=== PATIENT | male | born 1970 ===

== ENCOUNTER 2017-04-04 08:28 | Observation (INO) | payer OTHER ==
[2017-04-04 08:33] VITALS: BMI 30.6
[2017-04-04 08:34] VITALS: TEMP 97.9
--- NOTE | 2017-04-04 08:47 | C.PDOC ---
History Of Present Illness 46 y/o male, with no significant PMHx, presents to the ED for evaluation of intermittent left sided chest pain for the last 2 days. States that his pain radiates to upper back occasionally. Otherwise, denies any associated shortness of breath, cough, palpitations, lightheadedness, dizziness, headache, nausea, vomiting, or fever. Patient denies any PMHx or FHx of cardiac disease, or blood clots. Time Seen by Provider: 04/04/17 08:29 Chief Complaint (Nursing): Chest Pain History Per: Patient History/Exam Limitations: no limitations Onset/Duration Of Symptoms: Days (2), Intermittent Episodes Current Symptoms Are (Timing): Still Present Associated Symptoms: denies: Nausea, Dyspnea, Diaphoresis, Syncope Modifying Factors: None Exacerbating Factors: None Alleviating Factors: None Recent travel outside of the [place]: No Additional History Per: Patient Past Medical History Reviewed: Historical Data, Nursing Documentation, Vital Signs Vital Signs: Last Vital Signs Temp 97.9 F 04/04/17 08:33 Pulse 55 L 04/04/17 09:51 Resp 18 04/04/17 09:51 BP 128/87 04/04/17 09:51 Pulse Ox 96 04/04/17 10:25 - Medical History PMH: No Chronic Diseases Family History: States: No Known Family Hx Review Of Systems Except As Marked, All Systems Reviewed And Found Negative. Constitutional: Negative for: Fever, Chills, Sweats Cardiovascular: Positive for: Chest Pain. Negative for: Palpitations, Edema, Light Headedness Respiratory: Negative for: Cough, Shortness of Breath, SOB with Excertion, Sputum, Wheezing Gastrointestinal: Negative for: Nausea, Vomiting Skin: Negative for: Rash Neurological: Negative for: Weakness, Numbness, Headache, Dizziness Physical Exam - Physical Exam Appears: Non-toxic, No Acute Distress (comfortable) Skin: Normal Color, Warm, Dry Head: Atraumatic, Normacephalic Eye(s): bilateral: Normal Inspection Oral Mucosa: Moist Neck: Normal ROM, Supple Chest: Symmetrical, No Tenderness Cardiovascular: Rhythm Regular, No Murmur Respiratory: Normal Breath Sounds, No Accessory Muscle Use, No Rales, No Rhonchi , No Wheezing Gastrointestinal/Abdominal: Soft, No Tenderness Extremity: Normal ROM, No Pedal Edema, No Swelling Extremity: Bilateral: Atraumatic, Normal Color And Temperature Neurological/Psych: Oriented x3, Normal Speech, Other (anxious) ED Course And Treatment - Laboratory Results Result Diagrams: 04/04/17 09:08 04/04/17 09:08 ECG: Interpreted By Me, Viewed By Me ECG Rhythm: Sinus Rhythm ECG Interpretation: No Acute Changes Interpretation Of ECG: Normal axis. No acute ST wave changes. Rate From EC (bpm) O2 Sat by Pulse Oximetry: 96 (RA) Pulse Ox Interpretation: Normal Progress Note: Blood work, EKG, CXR ordered and reviewed. On reassessment, patient is resting comfortably, reports improvement of chest pain. Disposition Counseled Patient/Family Regarding: Studies Performed, Diagnosis, Need For Followup, Rx Given - Disposition Disposition: HOME/ ROUTINE Disposition Time: 11:10 Condition: STABLE - Clinical Impression Clinical Impression: Non-cardiac chest pain - Scribe Statement The provider has reviewed the documentation as recorded by the Scribe Timi Villalobos All medical record entries made by the Scribe were at my direction and personally dictated by me. I have reviewed the chart and agree that the record accurately reflects my personal performance of the history, physical exam, medical decision making, and the department course for this patient. I have also personally directed, reviewed, and agree with the discharge instructions and disposition.
[2017-04-04 09:13] LABS: BASO % 0.4 % (0.0-2.0); EOS # 0.1 K/uL (0.0-0.7); EOS % 1.1 % (0.0-4.0); HEMOGLOBIN 15.7 g/dL (12.0-18.0); LYMPH # 2.6 K/uL (1.0-4.3); LYMPH % 35.6 % (20.0-40.0); MEAN CELL VOLUME 87.9 fL (80.0-94.0); MEAN CORPUSCULAR HEMOGLOBIN 29.9 pg (27.0-31.0); MEAN PLATELET VOLUME 8.2 fL (7.2-11.7); MONO # 0.8 K/uL (0.0-0.8); NEUT # 3.7 K/uL (1.8-7.0); NEUT % 51.9 % (50.0-75.0); RBC 5.25 Mil/uL (4.40-5.90); RED CELL DISTRIBUTION WIDTH 12.7 % (11.5-14.5); WHITE BLOOD COUNT 7.2 K/uL (4.8-10.8)
[2017-04-04 09:25] LABS: GFR AFRICAN-AMERICAN > 60; GFR NON-AFRICAN AMERICAN > 60
[2017-04-04 09:26] LABS: ALB/GLOB RATIO 1.1 (1.0-2.1); ALT/SGPT 54 U/L (21-72); AST/SGOT 36 U/L (17-59); BLOOD UREA NITROGEN 10 mg/dL (9-20); LIPASE 36 U/L (23-300)
[2017-04-04 09:27] LABS: PARTIAL THROMBOPLASTIN TIME 27 SECONDS (21-34)
[2017-04-04 09:34] LABS: D DIMER < 200 ng/mlDDU (0-243)
[2017-04-04 09:35] LABS: CK-MB 1.13 ng/mL (0.0-3.38)
[2017-04-04 09:53] VITALS: RESP 18
--- NOTE | 2017-04-04 10:13 | RAD ---
HISTORY: COMPARISON: No prior. TECHNIQUE: Chest PA and lateral FINDINGS: LINES AND TUBES: None. LUNG AND PLEURA: Lungs are well inflated and clear. There are no pleural effusions or pneumothorax. HEART AND MEDIASTINUM: The heart is not enlarged. The hilar and mediastinal contours are within normal limits. SKELETAL STRUCTURES: The bony structures are within normal limits for the patient's age. VISUALIZED UPPER ABDOMEN: Normal. OTHER FINDINGS: None. IMPRESSION: No active pulmonary disease.
[2017-04-04 10:58] LABS: CK-MB 0.98 ng/mL (0.0-3.38)
[2017-04-04 11:26] VITALS: BP 141/91; PULSE 63; O2SAT 95
--- NOTE | 2017-04-05 11:12 | CARD ---
APPROVED REPORT EKG Measurement Heart [id number] <Conclusion> Normal sinus rhythm with sinus arrhythmia Normal ECG
== END 2017-04-04 11:15 | disposition home or self-care (01) ==
LOC: C.ER 08:28 → C.9OBSV 09:56
PROVIDERS: ADMIT Emergency Medicine; ATTEND Emergency Medicine
DX: R07.89 Other chest pain (principal)
CPT/HCPCS: 71020; 80053; 82550; 82553; 83690; 84484; 85025; 85378; 85610; 85730; G0378

== ENCOUNTER 2017-05-19 23:16 | Emergency (ER) | payer SELFPAY ==
[2017-05-19 23:16] VITALS: BMI 30.6
--- NOTE | 2017-05-20 01:26 | CP.PCM.CON ---
History of Present Illness - History of Present Illness History of Present Illness: Podiatry Consult Note - Dr. Brand 46 year old male patient with unremarkable PMHx seen in ED for painful right heel. Patient is accompanied by his and son at bedside. Patient seen resting comfortably, AAOx3 and NAD. Patient states at approximately 22:00 while at home he fell down 6 steps and landed on his right heel. Patient admits he drank 3 beers prior to the fall; denies loss of consciousness prior to the injury. Patient reports 10/10 pain to his right heel, and is unable to ambulate on his right foot. Patient states he initially went to [facility] but states he was not treated so his brought him to [facility]. Patient denies numbness, burning, or tingling to his RLE. Patient denies N/V/F/D/C/SOB/calf pain. No other pedal complaints at this time. PMH: unremarkable PSH: none FH: non-contributory SH: occasional ETOH, denies tobacco or illicit drug use Meds: none All: NKDA Review of Systems - Review of Systems All systems: reviewed and no additional remarkable complaints except (as per HPI ) Past Patient History - Past Social History Smoking Status: Never Smoked - PSYCHIATRIC Hx Substance Use: No - SURGICAL HISTORY Hx Surgeries: No - ANESTHESIA Hx Anesthesia: No Meds Home Medications: Home Medication List Medication Instructions Recorded Confirmed Type Ibuprofen [Motrin] 600 mg PO Q6H #30 tab 05/20/17 Rx Allergies/Adverse Reactions: Allergies Allergy/AdvReac Type Severity Reaction Status Date / Time No Known Allergies Allergy Verified 04/04/17 08:32 Physical Exam - Constitutional Appears: Well, Non-toxic, No Acute Distress - Extremities Exam Additional comments: VASC: DP and PT pulses palpable 2/4 b/l. CFT <3 seconds to digits x10. TG warm to warm. Non-pitting edema noted to medial and lateral R calcaneus. No increase in warmth noted to R foot. NEURO: Gross sensation intact bilaterally. DERM: Ecchymosis noted to lateral aspect of R calcaneus. No open lesions noted. No skin tenting noted to R calcaneus. ORTHO: +POP to medial, lateral, and plantar R calcaneus. Pain on calcaneal squeeze. Right foot muscle strength deferred secondary to guarding. Muscle strength 5/5 for all muscle groups L foot. - Neurological Exam Neurological exam: Alert, Oriented x3 - Psychiatric Exam Psychiatric exam: Normal Affect, Normal Mood Results - Vital Signs Recent Vital Signs: Last Vital Signs Temp 98.3 F 05/19/17 23:24 Pulse 114 H 05/19/17 23:24 Resp 20 05/19/17 23:24 BP 161/105 H 05/19/17 23:24 Pulse Ox 97 05/19/17 23:24 Assessment & Plan - Assessment and Plan (Free Text) Assessment: 46 year old male unremarkable PMH with right foot displaced calcaneal fracture Plan: Patient seen and evaluated Discussed with attending, Dr. Brand Right foot and calc axial XR reviewed Explained to patient morbidity associated with injury;advised patient that surgical intervention is the best option at this time Posterior splint applied to RLE Patient and family aware that patient is to be strict NWB to RLE with the assistance of crutches Ice behind knee 10 mins on/off Rest and elevate RLE above the heart Patient is to follow up with Dr. Brand in the podiatry clinic on Sunday, , for pre-operative evaluation Patient to get RLE CT prior to clinic appointment Stable from podiatry standpoint Thank you for this consult, please reconsult podiatry again as needed
[2017-05-20 01:42] VITALS: BP 134/86; PULSE 87; RESP 16; TEMP 98.2; O2SAT 94
--- NOTE | 2017-05-20 02:01 | C.PDOC ---
History Of Present Illness 46 year old male who presents to the ER with a complaint of right ankle pain after tripping down some stairs missing 6 steps and landing his right heel. Denies weakness or numbness. Time Seen by Provider: 05/19/17 23:42 Chief Complaint (Nursing): Lower Extremity Problem/Injury History Per: Patient History/Exam Limitations: no limitations Onset/Duration Of Symptoms: Hrs Current Symptoms Are (Timing): Still Present Recent travel outside of the [place]: No - Ankle/Foot Description Of Injury: Other (Slipped down stairs) Past Medical History Reviewed: Historical Data, Nursing Documentation, Vital Signs Vital Signs: Last Vital Signs Temp 98.2 F 05/20/17 01:41 Pulse 87 05/20/17 01:41 Resp 16 05/20/17 01:41 BP 134/86 05/20/17 01:41 Pulse Ox 94 L 05/20/17 02:18 - Medical History PMH: No Chronic Diseases Surgical History: No Surg Hx Family History: States: Unknown Family Hx - Social History Hx Alcohol Use: Yes Hx Substance Use: No - Immunization History Hx Tetanus Toxoid Vaccination: No Hx Influenza Vaccination: No Hx Pneumococcal Vaccination: No Review Of Systems Musculoskeletal: Positive for: Foot Pain Neurological: Negative for: Weakness, Numbness Physical Exam - Physical Exam Appears: Non-toxic Skin: Normal Color, Warm, Dry Head: Atraumatic, Normacephalic Extremity: Tenderness (right calcaneus), Capillary Refill (Good), Other (No gross swelling or deformity. Remainder of the right lower extremity is normal.) Pulses: Left Dorsalis Pedis: Normal, Right Dorsalis Pedis: Normal Neurological/Psych: Oriented x3, Normal Speech, Normal Cognition ED Course And Treatment O2 Sat by Pulse Oximetry: 94 (Room air) Pulse Ox Interpretation: Normal - Other Rad Right heel x-ray X-Ray: Interpreted by Me, Viewed By Me Interpretation: Slightly displaced fracture of the right calcaneus. Progress Note: Right heel x-ray ordered. Motrin administered. Podiatry resident evaluated patient at bedside, placed him in a splint, and advised to have him follow up at the podiatry clinic on Sunday. Pt instructed in crutch walking. Pt d/c home accompanied by his and son. Understands follow up and return instructions Disposition Counseled Patient/Family Regarding: Diagnosis, Need For Followup, Rx Given - Disposition Referrals: Podiatry Clinic [Outside] [facility] [Outside] Disposition: HOME/ ROUTINE Disposition Time: 02:16 Condition: STABLE Additional Instructions: Please follow up with Podiatry clinic on sunday morning Take motrin for pain Keep leg elevated Return to ER if worse Prescriptions: Ibuprofen [Motrin] 600 mg PO Q6H #30 tab Instructions: Calcaneal Fracture (ED) Forms: [facility]ando Murphy (Yakut) - Clinical Impression Clinical Impression: Right calcaneal fracture - Scribe Statement The provider has reviewed the documentation as recorded by the Scribe Shelton Hernandes All medical record entries made by the Scribe were at my direction and personally dictated by me. I have reviewed the chart and agree that the record accurately reflects my personal performance of the history, physical exam, medical decision making, and the department course for this patient. I have also personally directed, reviewed, and agree with the discharge instructions and disposition.
--- NOTE | 2017-05-20 09:00 | RAD ---
PROCEDURE: Radiographs of the right calcaneus/hindfoot. HISTORY: pain, fall COMPARISON: None available. TECHNIQUE: Frontal and lateral radiographs of the calcaneus. FINDINGS: There is mildly displaced comminuted calcaneal fracture. There is displaced bony fragment measures approximately 15 x 7 millimeter to the dorsal aspect of the mid calcaneus. IMPRESSION: Large comminuted and displaced fracture through the calcaneus associated with displaced bony fragment.
== END 2017-05-20 02:26 | disposition home or self-care (01) ==
LOC: C.ER 23:16
DX: S92.001A Unspecified fracture of right calcaneus, initial encounter for closed fracture (principal); W10.8XXA Fall (on) (from) other stairs and steps, initial encounter; Y93.89 Activity, other specified; Y92.008 Other place in unspecified non-institutional (private) residence as the place of occurrence of the external cause

== ENCOUNTER 2017-05-24 09:34 | Day surgery (SDC) | payer SELFPAY ==
[2017-05-21 10:19] VITALS: BMI 33.2
[~2017-05-24 09:34] MED LIST: Bupivacaine HCl 0.5% PF (10 ml) Inj ONE; Lidocaine 2% Inj (20ml) ONE; Lidocaine Hydrochloride 5 ML INJ ONE; Midazolam 2 MG/2 ML VIAL ONE; Propofol 10 mg/ml Inj (20 ML) ONE; Succinylcholine Chloride 20 mg/ml Syr (5 ml) IV ONE
[2017-05-24] MEDS ORDERED: ceFAZolin IV 2 gm in Dextrose 1 GM/50 ML BAG IVPB SCH (10:00)
[2017-05-24] MEDS ORDERED: ceFAZolin IV 2 gm in Dextrose 1 GM/50 ML BAG IVPB ONE (10:14)
[2017-05-24] MEDS ORDERED: Bupivacaine HCl 0.5% PF (10 ml) Inj ONE ×3 (10:21→13:31)
[2017-05-24] MEDS ORDERED: Lactated Ringer's 1,000 ML IV ONE ×2 (10:30→12:30)
[2017-05-24] MEDS ORDERED: Midazolam 2 MG/2 ML VIAL ONE (10:31)
[2017-05-24] MEDS ORDERED: Neostigmine Methylsulfate 3mg/3ml Syringe IV ONE (12:27)
[2017-05-24] MEDS ORDERED: Morphine 4 MG/ML VIAL ONE (12:31)
--- NOTE | 2017-05-24 12:53 | PCM.SURG1 ---
Surgeon's Initial Post Op Note - Surgeon's Notes Surgeon: Dr. Brand Grease Maker Head: Thomas Vuong PGY-3, Naheed Beltrán PGY-3 Type of Anesthesia: General Endo Anesthesia Administered By: Dr. Manrique Pre-Operative Diagnosis: Right calcaneal fracture Operative Findings: see dictation. M: 6.5 partially threaded long thread 65 mm cannulated screw, 6.5 partially threaded short thread 55 mm cannulated screw Post-Operative Diagnosis: same Operation Performed: Right calcaneus open reduction internal fixation Specimen/Specimens Removed: none Estimated Blood Loss: EBL {In ML}: 3 Blood Products Given: N/A Drains Used: No Drains Post-Op Condition: Good Date of Surgery/Procedure: 05/24/17 Time of Surgery/Procedure: 10:30
[2017-05-24] MEDS ORDERED: Oxycodone/Acetaminophen 5/325 mg Tab PO PRN ×2 (12:56)
[2017-05-24] MEDS ORDERED: Lactated Ringer's 1,000 ML IV SCH (13:15)
[2017-05-24] MEDS ORDERED: HYDROmorphone 0.5 mg/0.5 ml ISec IVP PRN (13:23)
--- NOTE | 2017-05-24 13:52 | PCM.ANESB2 ---
Popliteal Nerve Block - Popliteal Nerve Block Date of Procedure: 05/24/17 Anesthesiologist: Rafa Pre-Procedure Diagnosis: Right calcaneal fracture Post-Procedure Diagnosis: ORIF right calcaneal Procedure Performed: Popliteal Nerve Block Right - Procedure Popliteal Nerve Block: This procedure was explained to the patient that it is for post-operative pain management. Consent was obtained after a thorough discussion with the patient regarding the benefits and possible complications of local anesthetic block of the sciatic nerve at the popliteal level. The patient was brought to the recoveryroom and standard monitors are applied. Time-out was held with the circulating nurse to confirm the correct surgery and the appropriate block. After applying oxygen by nasal cannula and administering IV Sedation, patient's operative leg was gently raised and supported and the groove in between the biceps femoris and vastus lateralis muscles was carefully palpated. The skin approximately 8cm above the popliteal crease was then marked. The ultrasound transducer was then applied to the posterior thigh approximately 8cm above the popliteal crease in the transverse plane and the sciatic nerve before its division was visualized lateral to the popliteal artery and in between the bicep femoris and semimembranosus/semitendinosus muscles. After identification, the lateral portion of the thigh was prepped with Betadine solution three times and Lidocaine 1% was injected subcutaneously for topical anesthesia. At this point, a # 21 gauge Stimuplex insulated 4 inch needle was inserted into pre-marked area and advanced in a perpendicular direction. The needle was inserted above the ultrasound transducer in-plane towards the sciatic nerve in a [id number] direction. Needle advancement was performed carefully under direct ultrasound visualization. After repeated negative aspiration, __30___cc of __0.5___ % ____Bupivacaine___ was injected_. Under ultrasound guidance the local anesthetics were observed tenting the epidural sheath and surrounding the roots of the sciatic nerve. The needle was removed intact and sterile dressing was applied. The patient tolerated the popliteal nerve block well with stable vital signs.
[2017-05-24 14:58] VITALS: BP 147/81; PULSE 79; RESP 18; TEMP 97; O2SAT 100
--- NOTE | 2017-05-24 15:03 | RAD ---
INTRAOPERATIVE FLUOROSCOPY HISTORY: Calcaneus fracture. TECHNIQUE/FINDINGS: Fluoroscopic guidance was provided by Radiology department. Please see operative report for full details. Nine images were provided. Total fluoroscopy time was 193.6 seconds. IMPRESSION: As above
--- NOTE | 2017-05-24 16:40 | RAD ---
PROCEDURE: Right Ankle Radiographs. HISTORY: s/p R calcaneus ORIF COMPARISON: Right foot x-ray 05/24/2017 1304 hours FINDINGS: BONES: Examination made through casting. Two screws transfix a comminuted calcaneal fracture. JOINTS: Ankle mortise maintained. Talar dome intact SOFT TISSUES: Normal. OTHER FINDINGS: A 1.7 cm calcaneal fracture fragment projects over the inferior calcaneal cortex on the lateral view from the right foot exam IMPRESSION: Status post open reduction and internal fixation of a comminuted calcaneal fracture Same-day lateral view of the right foot is noted.
--- NOTE | 2017-05-24 16:43 | RAD ---
PROCEDURE: Right Foot Radiographs. HISTORY: s/p right calcaneus ORIF COMPARISON: CT 05/23/2017 FINDINGS: BONES: The comminuted calcaneal fracture with subtalar joint extension and separate fracture fragment projecting over the inferior calcaneal cortex is renoted. The spacing between the most posterior calcaneal comminuted fracture fragment appears narrowed currently. Two screws transfix the dominant fracture line here. A anterior calcaneal process fracture fragment is also incidentally noted. Conceivably calcaneus secondary S accessory ossification centers can simulate this. JOINTS: Fracture extension into the posterior subtalar joint SOFT TISSUES: Soft tissue swelling and overlying casting material OTHER FINDINGS: None. IMPRESSION: Open reduction internal fixation of a comminuted calcaneal fracture with inferior displaced calcaneal fracture fragment noted. Also noted is a calcaneal anterior process fracture
--- NOTE | 2017-05-29 12:54 | OP ---
DATE OF SURGERY: 05/24/2017 PREOPERATIVE DIAGNOSIS: Right foot calcaneal fracture. POSTOPERATIVE DIAGNOSIS: Right foot calcaneal fracture. PROCEDURE PERFORMED: Right foot open reduction and internal fixation of calcaneal fracture. SURGEON: Chula Brand DPM ASSISTANTS: 1. Thomas Vuong DPM, PGY3. 2. Frannie Temple, PGY-3. TYPE OF ANESTHESIA: General sedation. INDICATIONS: This patient is a 46-year-old male with above-mentioned diagnosis. The patient presented to the [facility] emergency department after suffering a traumatic injury. Diagnostic imaging revealed a right foot calcaneal fracture. The patient seeks surgical intervention at this time. All alternatives, benefits, complications, and risks of surgical procedure were explained to the patient at length. The patient verbalized understanding and wished to proceed. All questions were addressed and answered. No guarantees were given nor implied. Consent was signed and NPO status was confirmed prior to bringing the patient to the operating room. OPERATIVE PROCEDURE: The patient was brought into the operating room and placed on the operating room table in the lateral position. After induction of general sedation, the right foot and leg were prepped in the normal sterile manner and the procedure began. DESCRIPTION OF PROCEDURE: Right foot open reduction and internal fixation of calcaneal fracture. Attention was directed to the posterolateral aspect of the patient's right heel where the local approach fracture was confirmed utilizing intraoperative fluoroscopy. Next, an incision was made at the posterolateral aspect of the patient's right heel with a #15 blade. The incision was deepened through superficial and subcutaneous tissue down to the level of the posterolateral calcaneus. A curvilinear incision was made on the inferolateral aspect of the calcaneus with #15 blade. Incision was deepened through superficial and subcutaneous tissues utilizing sharp and blunt dissection. Next, a bone reduction clamp was inserted into the previously made incisions and placed on the end of the posterolateral calcaneus and the other end on the inferolateral calcaneus fracture site. Utilizing intraoperative fluoroscopy, the fracture site was reduced with the bone reduction clamp. At this time, it was noted that the fracture site had been adequately and anatomically reduced and that the subtalar joint had been anatomically reduced. Next, two guide pins from the Synthes 6.5 mm cannulated screw set were inserted from posterior to anterior through the calcaneus. Utilizing intraoperative fluoroscopy, the guide pins were inserted across the fracture site ensuring to not penetrate into the calcaneocuboid joint or the subtalar joint. Once the positioning of the guide pin was confirmed and fracture reduction had been reconfirmed, two Synthes 6.5 mm partially-threaded cannulated screws were inserted overlying the guide pins. The screws were inserted utilizing standard A-O technique and intraoperative fluoroscopy was utilized to confirm appropriate positioning of screws. It was determined by intraoperative fluoroscopy that the screws were in appropriate position, adequately fixated in the fracture site and not penetrating through the calcaneocuboid or calcaneal joint. Next, the guide pins were removed and passed from the surgical field to the back table. At this time, it was noted that the main fracture fragment had been adequately and anatomically reduced with appropriate positioning of the hardware; however, there was a fracture of the medial tubercle that persisted. Multiple times reduction on this fracture fragments were attempted utilizing K-wires, bone reduction forceps, but to no avail. It was determined at this time that the main fracture line had been adequately restored. The calcaneal height and width had been restored. The calcaneus had been rotated and there was adequate anatomic alignment of the subtalar joint. The surgical incisions were then flushed with copious amounts of sterile normal saline. The skin was then reapproximated utilizing 4-0 Prolene suture. Intraoperative injections consisted of 10 mL of 0.5% of Marcaine plain. Postoperative bandages consisted of Betadine-soaked Adaptic, DSD, Ofe, cast padding, and a bivalved below-knee fiberglass cast. POSTOPERATIVE CONDITION: The patient tolerated the procedure and anesthesia well with no apparent complications or complaints. The patient was escorted from the OR to the recovery room with vital signs stable and neurovascular status intact. The patient will follow up with Dr. Brand in the [facility]. Thomas Vuong DPM Chula Brand DPM
== END 2017-05-24 15:38 | disposition home or self-care (01) ==
LOC: C.SDS 09:34
PROVIDERS: ATTEND Podiatrist Foot & Ankle Surgery
DX: S92.001A Unspecified fracture of right calcaneus, initial encounter for closed fracture (principal); W10.8XXA Fall (on) (from) other stairs and steps, initial encounter; Y92.009 Unspecified place in unspecified non-institutional (private) residence as the place of occurrence of the external cause
CPT/HCPCS: 28415; 73600; 73620; 76000; 97116; 97161; G8978; G8979; G8980; J0690; J1170; J2250; J2270; J2405; J2704; J2710; J3010; J7120